=== PATIENT | female | born 1960 | race African-American/Black ===

== ENCOUNTER 2019-12-04 22:11 | Inpatient (IN) ==
[2019-12-04] MEDS ORDERED: 0.9 % Sodium Chloride 1,000 ML IVC ONE (22:41)
[2019-12-04] MEDS ORDERED: Ondansetron 4 MG/2 ML VIAL IVP PRN (22:42)
[2019-12-04] MEDS ORDERED: Acetaminophen 325 MG TABLET PO ONE (23:07)
[2019-12-04] MEDS ORDERED: Dexamethasone 4 MG/ML VIAL IVP ONE ×2 (23:11→23:47)
[2019-12-04 23:38] LABS: Basophils % 0.2 %; Monocytes % 4.3 %; Red Cell Distribution Width 12.5 % (11.5-14.5)
[2019-12-04 23:40] LABS: Hematocrit 40.4 % (35.3-44.9); Hemoglobin 13.2 g/dL (11.5-15.4); Immature Granulocytes % 0.2 % (0-4); Immature Platelets 3.3 % (1.1-6.1); Lymphocytes # 0.7 K/mcL (0.6-4.6); Lymphocytes % 16.2 %; Mean Corpuscular HGB Conc 32.7 g/dL (31.6-35.5); Mean Corpuscular Hemoglobin 29.2 pg (28.0-33.3); Mean Corpuscular Volume 89.4 fL (83.0-100.0); Mean Platelet Volume 10.4 fL (9.4-12.4); Monocytes # 0.2 K/mcL (0.0-1.3); Neutrophils # 3.5 K/mcL (1.6-8.9); Platelet Count 103 K/mcL (140-400); Red Blood Count 4.52 M/mcL (3.82-4.97); Segmented Neutrophils % 79.1 %; White Blood Count 4.4 K/mcL (4.3-11.1)
[2019-12-04 23:51] LABS: BUN/Creatinine Ratio 9 (6-26); Blood Urea Nitrogen 7 mg/dL (8-23); Calcium 7.5 mg/dL (8.6-10.3); Carbon Dioxide 29 mEq/L (23-29); Chloride 102 mEq/L (98-107); Glucose 121 mg/dL (70-105); Osmolality,Calculated 281 (280-300); Potassium 3.7 mEq/L (3.5-5.1); Sodium 136 mEq/L (136-145); eGFR For African Americans > 60 (> 60); eGFR For Non-African Americans > 60 (> 60)
[2019-12-05] LABS: Platelet Estimate Normal (Normal)
[2019-12-05] MEDS ORDERED: Naloxone 0.4 MG/ML INJ IVP PRN (06:19)
[2019-12-05] MEDS ORDERED: Ondansetron 4 MG/2 ML VIAL IVP PRN (06:19)
[2019-12-05] MEDS ORDERED: 0.9 % Sodium Chloride 1,000 ML IVC SCH (06:30)
[2019-12-05 07:35] LABS: Hematocrit 38.8 % (35.3-44.9); Red Cell Distribution Width 12.5 % (11.5-14.5)
[2019-12-05 07:36] LABS: Prothrombin Time 11.8 Seconds (9.4-12.1)
[2019-12-05 07:37] LABS: Hemoglobin 12.8 g/dL (11.5-15.4); Immature Platelets 3.6 % (1.1-6.1); Immature Reticulocyte % 11.6 % (11.0-38.0); Mean Platelet Volume 10.1 fL (9.4-12.4); Red Blood Count 4.41 M/mcL (3.82-4.97); Retculocyte # 0.03 M/mcL (0.05-0.10); Reticulocyte % 0.8 % (1.6-2.8); White Blood Count 3.9 K/mcL (4.3-11.1)
[2019-12-05 07:55] LABS: BUN/Creatinine Ratio 10 (6-26); Blood Urea Nitrogen 7 mg/dL (8-23); Calcium 7.7 mg/dL (8.6-10.3); Carbon Dioxide 26 mEq/L (23-29); Chloride 104 mEq/L (98-107); Glucose 158 mg/dL (70-105); Lactate Dehydrogenase 282 Units/L (140-271); Magnesium 1.9 mg/dL (1.6-2.6); Osmolality,Calculated 285 (280-300); Phosphorous 2.3 mg/dL (2.7-4.5); Potassium 3.6 mEq/L (3.5-5.1); Sodium 137 mEq/L (136-145); eGFR For African Americans > 60 (> 60); eGFR For Non-African Americans > 60 (> 60)
[2019-12-05] MEDS: Acetaminophen 325 MG TABLET PO PRN ×2 (08:04→17:48)
[2019-12-05 08:17] LABS: Folate 14.5 ng/mL (3.0-16.0)
[2019-12-05 08:37] LABS: Vitamin B12 > 1500 pg/mL (250-1100)
[2019-12-05 09:25] LABS: Hepatitis B Surface Antigen Nonreactive (Nonreactive)
[2019-12-05 09:55] LABS: Hepatitis A Antibody IgM Nonreactive (Nonreactive); Hepatitis B Core IgM Nonreactive (Nonreactive); Hepatitis C Virus Antibody Nonreactive (Nonreactive)
[2019-12-05] MEDS ORDERED: Potassium Phosphate 44 MEQ in 0.9 % Sodium Chloride 250 ML IVPB ONE (17:24)
[2019-12-05] MEDS: *HR* Heparin 5,000 UNIT/ML VIAL SQ SCH (17:31)
[2019-12-05 19:23] LABS: Procalcitonin 0.07 ng/mL (0.00-0.15)
[2019-12-05] MEDS: Dexamethasone 10 MG/ML VIAL IVP SCH (22:41)
[2019-12-05] MEDS ORDERED: hydrOXYzine pamoate 25 MG CAPSULE PO ONE (23:27)
[2019-12-05] MEDS: Benzonatate 100 MG CAPSULE PO PRN (23:43)
[2019-12-06] MEDS: *HR* Heparin 5,000 UNIT/ML VIAL SQ SCH ×2 (06:24→18:27)
[2019-12-06] MEDS: Acetaminophen 325 MG TABLET PO PRN ×2 (08:35→18:26)
[2019-12-06] MEDS: Benzonatate 100 MG CAPSULE PO PRN ×3 (08:47→22:53)
[2019-12-06 12:29] LABS: Hemoglobin 12.5 g/dL (11.5-15.4); Mean Platelet Volume 9.8 fL (9.4-12.4)
[2019-12-06 12:31] LABS: Hematocrit 37.9 % (35.3-44.9); Immature Platelets 3.5 % (1.1-6.1); Mean Corpuscular Volume 87.9 fL (83.0-100.0); Red Blood Count 4.31 M/mcL (3.82-4.97); Red Cell Distribution Width 12.6 % (11.5-14.5); White Blood Count 6.2 K/mcL (4.3-11.1)
[2019-12-06 12:42] LABS: BUN/Creatinine Ratio 13 (6-26); Blood Urea Nitrogen 9 mg/dL (8-23); Calcium 7.9 mg/dL (8.6-10.3); Carbon Dioxide 27 mEq/L (23-29); Chloride 105 mEq/L (98-107); Glucose 159 mg/dL (70-105); Osmolality,Calculated 290 (280-300); Potassium 3.8 mEq/L (3.5-5.1); Sodium 139 mEq/L (136-145); eGFR For African Americans > 60 (> 60); eGFR For Non-African Americans > 60 (> 60)
[2019-12-06 13:01] LABS: Ferritin 491 ng/mL (10-120)
[2019-12-06] MEDS: *HR* LORazepam 0.5 MG TABLET PO PRN (15:31)
[2019-12-06] MEDS: Dexamethasone 10 MG/ML VIAL IVP SCH (22:45)
[2019-12-07] MEDS: *HR* LORazepam 0.5 MG TABLET PO PRN (02:47)
[2019-12-07] MEDS ORDERED: *HR* Enoxaparin 40 MG/0.4 ML SYRINGE SQ SCH (06:00)
[2019-12-07 08:47] VITALS: BP 131/74
[2019-12-07] MEDS: Benzonatate 100 MG CAPSULE PO PRN (08:58)
[2019-12-07] MEDS ORDERED: FLUoxetine 20 MG CAPSULE PO SCH (09:00)
== END 2019-12-07 17:12 | disposition home or self-care (01) | DRG 177 ==
LOC: EMEROOARM 22:11 → 2NENU 22:11 → SUATTDRO 12-05 14:19
PROVIDERS: ADMIT Family Medicine; ATTEND Internal Medicine